=== PATIENT | male | born 2000 | race Two or more races ===

== ENCOUNTER 2023-04-02 10:26 | Outpatient (CLI) | payer OTHER | END 2023-04-02 10:36 | disposition home or self-care (01) | LOC: PPH VACUNA 10:26 | PROVIDERS: ATTEND Emergency Medicine Pediatric Emergency Medicine | DX: Z23 Encounter for immunization (principal) ==

== ENCOUNTER 2023-05-04 09:44 | Emergency (ER) | payer OTHER ==
[~2023-05-04] VITALS: Ht 165.1 cm; Wt 74.8 kg
== END 2023-05-04 11:33 | disposition home or self-care (01) ==
LOC: ER 09:44
DX: J02.9 Acute pharyngitis, unspecified (principal)